=== PATIENT | female | born 1985 | race Caucasian/White ===

== ENCOUNTER 2017-07-18 12:35 | Emergency (ER) | payer BC ==
[2017-07-18 12:52] VITALS: BP 155/89
--- NOTE | 2017-07-18 14:02 | UC ---
General HPI - HPI Summary HPI Summary: Patient presents to the with CC of shaking, anxiety, malaise, body aches, generalized "fog," difficulty talking to co-workers. She states in the last week she slept through her alarm, has been feeling ill, and has not felt like herself. Denies urinary symptoms. Notes to some back pain, but this was during the time she was starting her cycle. She has not taken anything for medication. She has extreme anxiety but does not currently take medications for that. - History of Current Complaint Chief Complaint: UCGeneralIllness Stated Complaint: CHILLS,DIARRHEA RECTAL BLEEDING SHAKING Time Seen by Provider: 07/18/17 13:02 Hx Obtained From: Patient Hx Last Menstrual Period: 07/15/17 is on murena Onset/Duration: Sudden Onset Timing: Constant Onset Severity: Mild Current Severity: Mild Associated Signs & Symptoms: Positive: Agitation, Diarrhea Related Hx: Recent Illness - Allergy/Home Medications Allergies/Adverse Reactions: Allergies Allergy/AdvReac Type Severity Reaction Status Date / Time No Known Allergies Allergy Verified 07/18/17 12:52 Home Medications: Home Medications Amphetamine/Dextroamph ER(NF) [Adderal XR (NF)] 30 mg PO DAILY 07/18/17 [ History Confirmed 07/18/17] PMH/Surg Hx/FS Hx/Imm Hx Previously Healthy: Yes - Surgical History Surgical History: None - Family History Known Family History: Positive: Unknown - Social History Occupation: Employed Part-time Lives: With Family Alcohol Use: Rare Substance Use Type: None Smoking Status (MU): Never Smoked Tobacco Type: Cigarettes Amount Used/How Often: 1/2 ppd Review of Systems Constitutional: Chills, Fatigue Skin: Negative Eyes: Negative Respiratory: Negative Cardiovascular: Negative Motor: Negative Neurovascular: Negative Musculoskeletal: Arthralgia Neurological: Headache, Weakness Psychological: Anxious Is Patient Immunocompromised?: No All Other Systems Reviewed And Are Negative: Yes Physical Exam Triage Information Reviewed: Yes Appearance: Well-Appearing, Well-Nourished Vital Signs: Initial Vital Signs Temp 99.0 F 07/18/17 12:44 Pulse 110 07/18/17 12:44 Resp 20 07/18/17 12:44 BP 155/89 07/18/17 12:44 Pulse Ox 98 07/18/17 12:44 Vital Signs Reviewed: Yes Eye Exam: Normal Eyes: Positive: Conjunctiva Clear Neck exam: Normal Neck: Positive: No Lymphadenopathy Respiratory Exam: Normal Respiratory: Positive: Chest non-tender Cardiovascular Exam: Normal Cardiovascular: Positive: RRR Musculoskeletal Exam: Normal Musculoskeletal: Positive: Strength Intact Neurological Exam: Normal Neurological: Positive: Alert Psychological: Positive: Other: - anxious Course/Dx - Course Course Of Treatment: Patient is very anxious. PE is normal. She is given anxiety medications. Discussed at length > 30 minutes about symptoms related to anxiety. She agrees. Flu negative. She will follow up with her therapist as needed. Ativan given. - Differential Dx - Multi-Symptom Differential Diagnoses: Urinary Tract Infection, Other Provider Diagnoses: Anxiety Discharge - Discharge Plan Condition: Stable Disposition: HOME Prescriptions: LORazepam TAB(*) [Ativan 0.5 MG TAB (*)] 0.5 mg PO Q6H PRN #12 tab MDD 4 PRN Reason: Anxiety Patient Education Materials: Anxiety (ED) Forms: *School Release, *Work Release Referrals: Keiko Mendoza MD [Primary Care Provider] - Additional Instructions: Please follow up with PCP as needed Follow up with therapist. You have been given Ativan for relief of your anxiety symptoms - follow up on this. Flu was negative today. If symptoms persist - you need to go to the Emergency Room.
== END 2017-07-18 14:29 | disposition home or self-care (01) ==
LOC: UCEAST 12:35
DX: F41.9 Anxiety disorder, unspecified (principal); Z32.02 Encounter for pregnancy test, result negative; F17.210 Nicotine dependence, cigarettes, uncomplicated
CPT/HCPCS: 81003; 84702; 87502; 99212; G0463